=== PATIENT | male | born 1990 | race Two or more races ===

== ENCOUNTER 2018-04-25 09:50 | Outpatient (CLI) | payer OTHER ==
--- NOTE | 2018-04-25 12:11 | MRI Report ---
Procedure Date: 04/25/2018 Accession Number: [id number] / [id number] Procedure: MRI - Pelvis W/WO CPT Code: FULL RESULT: EXAM: MRI PELVIS WITHOUT AND WITH CONTRAST EXAM DATE: 04/25/2018 11:17 AM. CLINICAL HISTORY: Bilateral inguinal pain. History of ventral hernia status post repair COMPARISON: None. TECHNIQUE: Multiplanar, multisequence T1-weighted and fluid-sensitive sequences of the pelvis before and after administration of intravenous contrast. IV contrast: 7.5 mL Gadavist. Other: None. FINDINGS: Pelvic cavity: The visualized bowel loops, bladder, and reproductive organs are within normal limits. Prostate gland is normal in size. No bladder stones or filling defects are demonstrated. There are postoperative changes suggested in bilateral inguinal regions consistent with hernia repair. Along the inguinal Canal openings there is lobulated heterogeneous hyperintense T2 and hypointense T1 soft tissue changes measuring 2.1 x 1.0 cm on the right and 2.2 x 1.3 cm on the left without appreciable enhancement. Findings are likely postoperative related and could represent prolene plugs from prior hernia repair. There is no significant surrounding edema or inflammatory changes. No fluid collections are identified either. No residual or recurrent hernia is suggested. Non-pathologically enlarged shotty lymph nodes are seen in the inguinal region bilaterally, slightly more prominent on the left side. Largest lymph node medial to the femoral vasculature measures 1.4 x 0.9 cm (image 12, series 1001). Remainder pelvic lymph nodes are normal. Bones: There is no bone lesion or marrow signal abnormality demonstrated. No degenerative changes are identified. Musculature: No edema or fatty atrophy. IMPRESSION: 1. Status post bilateral inguinal hernia repair with heterogeneous hyperintense nodular changes in both inguinal canal openings likely representing post operative scar tissue and/or hernia plugs. No residual hernia is identified. No significant surrounding inflammatory changes. 2. Small shoddy lymph nodes in the inguinal regions bilaterally, left side greater than right side, nonspecific. No overt lymphadenopathy is demonstrated. [facility]
== END 2018-04-25 09:51 | disposition home or self-care (01) ==
LOC: DI 09:50
DX: R10.30 Lower abdominal pain, unspecified (principal)
CPT/HCPCS: 72197; A9585